=== PATIENT | female | born 1995 | race Caucasian/White ===

== ENCOUNTER → 2020-09-18 | Emergency (ER) | payer BC ==
[~2020-09-18] VITALS: Ht 162.6 cm; Wt 63.5 kg
--- NOTE | 2020-09-18 18:09 | NUR ---
25 years old female walking to er c/o right leg pain no swelling noted distal pulses patent.
[2020-09-18 18:24] LABS: BASOPHILS % (AUTO) 0.5 % (0.0-2.0); EOSINOPHILS % (AUTO) 1.2 % (0.0-6.0); HEMATOCRIT 35 % (33-45); HEMOGLOBIN 11.5 g/dL (11.5-14.8); LYMPHOCYTES # (AUTO) 0.9 /CMM (0.8-4.8); LYMPHOCYTES % (AUTO) 12.7 % (20.0-44.0); MEAN CORPUSCULAR HGB CONC 33 g/dl (31.0-36.0); MEAN CORPUSCULAR VOLUME 91 fL (82-100); MONOCYTES # (AUTO) 0.6 /CMM (0.1-1.30); MONOCYTES % (AUTO) 8.2 % (2.0-12.0); NEUTROPHILS # (AUTO) 5.3 /CMM (1.8-8.9); NEUTROPHILS % (AUTO) 77.4 % (43.0-81.0); PLATELET COUNT (AUTO) 292 /CMM (150-450); RED BLOOD CELL COUNT(AUTO) 3.86 MIL/uL (4.0-5.2); WHITE BLOOD COUNT (AUTO) 6.8 K/uL (4.3-11.0)
[2020-09-18 18:31] LABS: CALCIUM, SERUM 9.1 mg/dL (8.5-10.1); CREATININE 0.8 mg/dL (0.6-1.3); POTASSIUM 3.7 mmol/L (3.5-5.1)
--- NOTE | 2020-09-18 19:28 | NUR ---
report endorsed to nurse Fred all questions answered.
[2020-09-18 19:43] VITALS: BP 124/74
--- NOTE | 2020-09-18 19:43 | NUR ---
Patient discharged to home in stable condition. Written and verbal after care instructions given. Patient verbalizes understanding of instruction.
== END ==
LOC: ER 17:37
DX: T63.481A Toxic effect of venom of other arthropod, accidental (unintentional), initial encounter (principal); R55 Syncope and collapse; F43.10 Post-traumatic stress disorder, unspecified; F31.9 Bipolar disorder, unspecified; Z60.2 Problems related to living alone; Y92.89 Other specified places as the place of occurrence of the external cause
CPT/HCPCS: 36415; 80048-TC; 85025-TC; 93970-TC